=== PATIENT | male | born 1975 | race African-American/Black ===

== ENCOUNTER 2021-10-16 11:00 | Emergency (ER) | payer OTHER ==
[~2021-10-16] VITALS: Ht 175.3 cm; Wt 90.9 kg
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
[2021-10-16 13:20] VITALS: BP 142/88
== END 2021-10-16 13:22 | disposition home or self-care (01) ==
LOC: M ED 11:00
DX: Z04.1 Encounter for examination and observation following transport accident (principal); R51.9 Headache, unspecified; M54.2 Cervicalgia; M54.50 Low back pain, unspecified; F17.210 Nicotine dependence, cigarettes, uncomplicated

== ENCOUNTER 2022-02-20 12:35 | Day surgery (SDC) | payer OTHER ==
[~2022-02-20] VITALS: Ht 175.3 cm; Wt 97.5 kg
[~2022-02-20 12:35] MED LIST: FLUO40CA PO; NS 1,000 ML IV ONE
[2022-02-20 14:25] VITALS: BP 153/107
== END 2022-02-20 14:55 | disposition home or self-care (01) ==
LOC: M OPP 12:35
PROVIDERS: ATTEND Internal Medicine Gastroenterology
DX: Z12.11 Encounter for screening for malignant neoplasm of colon (principal); K62.1 Rectal polyp; K64.0 First degree hemorrhoids; G47.33 Obstructive sleep apnea (adult) (pediatric); Z79.899 Other long term (current) drug therapy; F17.210 Nicotine dependence, cigarettes, uncomplicated

== ENCOUNTER 2022-11-26 10:34 | Emergency (ER) | payer OTHER ==
[~2022-11-26] VITALS: Ht 175.3 cm; Wt 96.4 kg
[~2022-11-26 10:34] MED LIST changes: -NS 1,000 ML IV ONE
[2022-11-26] MEDS ORDERED: ATOR1TAB21 (10:58)
[2022-11-26] MEDS ORDERED: PENI500T PO (12:33)
[2022-11-26 12:49] VITALS: BP 157/91
== END 2022-11-26 12:52 | disposition home or self-care (01) ==
LOC: M ED 12:16
DX: J02.9 Acute pharyngitis, unspecified (principal); I10 Essential (primary) hypertension; F17.200 Nicotine dependence, unspecified, uncomplicated